=== PATIENT | female | born 1985 | race Caucasian/White ===

== ENCOUNTER 2019-12-21 12:40 | Emergency (ER) | payer MEDICAID, SELFPAY ==
[2019-12-21 12:47] VITALS: BP 114/68; PULSE 87; RESP 16; TEMP 36.8; O2SAT 98; BMI 36.7
[2019-12-21 13:42] LABS: Basophils Percent Auto 0.3 % (0-2); Eosinophils Absolute Auto 0.3 X10*3/uL (0.0-0.4); Eosinophils Percent Auto 2.6 % (0-4); Hematocrit 39.9 % (37-47); Hemoglobin 12.6 g/dl (12.0-16.0); Imm Gran Abs Auto 0.02 X10*3/uL (0.00-0.03); Imm Gran Pct Auto 0.2 % (0.0-0.4); Lymphocytes Percent Auto 31.6 % (20-40); Mean Corpuscular HGB Conc 31.6 g/dl (31.0-35.0); Mean Corpuscular Hemoglobin 24.9 pg (27.0-33.0); Mean Corpuscular Volume 78.9 fL (80-98); Monocytes Absolute Auto 0.6 X10*3/uL (0.1-1.2); Monocytes Percent Auto 5.9 % (2-11); Neutrophils Absolute Auto 5.6 X10*3/uL (2.0-8.3); Neutrophils Percent Auto 59.4 % (45-73); Platelet Count 327 X10*3/uL (160-400); Red Blood Count 5.06 X10*6/uL (4.20-5.50); Red Cell Distribution Width 15.9 % (11.0-16.0); White Blood Count 9.5 X10*3/uL (4.8-10.8)
[2019-12-21 13:43] LABS: Glucose Urine UA NEG (NEG); Leukocyte Esterase Urine NEG (NEG); MANUAL DIFF FLAG NO; Nitrite Urine NEG (NEG); Specific Gravity - Urine >= 1.030 (1.005-1.025); Urine Blood 1+ (NEG); Urine Ketones NEG (NEG); Urine Protein NEG (NEG-TRACE)
[2019-12-21 13:46] LABS: Appearance Urine HAZY; Color Urine YELLOW
[2019-12-21 13:47] LABS: UPreg QC Valid YES; Urine Pregnancy NEGATIVE (NEGATIVE)
[2019-12-21] MEDS: 0.9 % Sodium Chloride 500 ML 1000 ML IV (13:48)
[2019-12-21 13:53] LABS: Bacteria Urine TRACE /LPF; Mucus Urine 4+ /LPF; Squamous Epithelial Cell Urine 3+ /LPF; WBC Urine 0-2 /HPF (0-4)
[2019-12-21] MEDS: ondansetron HCL 4 MG/2 ML VIAL IVPUSH (13:53)
--- NOTE | 2019-12-21 14:00 | PC.NURSE ---
PT BECAME DIAPHORETIC, PALE, NAUSEOUS DURING IV INSERTION. FLUIDS HUNG, LABS DRAWN.
[2019-12-21 14:10] LABS: Alanine Aminotransferase 23 U/L (0-31); Albumin Level 4.3 g/dL (3.5-5.0); Alkaline Phosphatase 65 U/L (39-117); Anion Gap 13 (12-20); Aspartate Amino Transferase 22 U/L (5-31); Bilirubin Total 0.5 mg/dL (0.0-1.0); Blood Urea Nitrogen 8 mg/dL (9-16); Calcium 8.8 mg/dL (8.4-10.2); Carbon Dioxide 22 mmol/L (22-29); Chloride 107 mmol/L (96-108); Creatinine Clr Calc Pharmacy 111.5; Estimated Glomerular Filt Rate > 60; Glucose Random 83 mg/dL (60-115); Potassium 3.9 mmol/l (3.3-5.1); Sodium 138 mmol/L (135-145); Total Protein 7.7 g/dL (6.5-8.0)
[2019-12-21 14:14] VITALS: BP 99/64; PULSE 62; RESP 14; O2SAT 99
--- NOTE | 2019-12-21 14:29 | CT_ITS ---
EXAMINATION: CT ABDOMEN AND PELVIS WITH CONTRAST CLINICAL INFORMATION: Right lower quadrant and right flank pain. COMPARISON: None TECHNIQUE: Multidetector volumetric images were obtained from the superior aspect of the liver through the pubic symphysis following administration 85 mL of Omnipaque 350 intravenous contrast. Sagittal and coronal reformatted images were obtained on the technologist's workstation. Oral contrast: No This CT examination was performed using dose optimization techniques as appropriate, variously including the following: *Automated exposure control *Adjustment of mA and/or kV according to patient size (this includes techniques or standardized protocols for targeted exams where dose is matched to indication/reason for exam; i.e. extremities or head) *Use of iterative reconstruction technique DLP: 792 mGy-cm FINDINGS: LUNG BASES: The visualized lung bases are unremarkable. LIVER, GALLBLADDER, AND BILIARY TREE: The liver shows mildly decreased attenuation consistent with hepatic steatosis. There is no focal parenchymal lesion. No intrahepatic ductal dilatation. Liver size and contour are normal. The gallbladder has been surgically removed. PANCREAS: Unremarkable. SPLEEN: Unremarkable. ADRENAL GLANDS: Unremarkable. KIDNEYS AND URETERS: A nonobstructing calculus in the lower pole the left kidney measures 0.3 cm. There are several other tiny punctate nonobstructing calculi in both kidneys. A small hypoattenuating lesion medially in the lower pole of the left kidney measures 0.3 cm and is too small to characterize. Kidneys are otherwise unremarkable. No hydronephrosis. No ureteric calculi are demonstrated. BLADDER: Unremarkable. GASTROINTESTINAL TRACT: The stomach and duodenum are normal. The small bowel and mesentery are unremarkable. The colon is decompressed and unremarkable. The appendix is normal. ABDOMINAL WALL: No significant hernia is appreciated. LYMPH NODES: Normal. VASCULAR: Unremarkable. PELVIC VISCERA: Unremarkable. OSSEOUS STRUCTURES: Unremarkable. Small benign bone islands are seen in the proximal femurs and right ischium. CT/CT abdomen pelvis w con IMPRESSION: 1. Nonobstructing calculi both kidneys. No ureteric or bladder calculi demonstrated. No hydronephrosis. 2. Normal appendix. 3. Mild hepatic steatosis. 4. Status post cholecystectomy.
[2019-12-21] MEDS: iohexoL 350 MG/ML 100 ML INFUS..BTL IV (15:20)
[2019-12-21 16:10] VITALS: BP 103/62; PULSE 77; RESP 16; O2SAT 99
--- NOTE | 2019-12-21 16:17 | ED.ABDPAIN ---
HPI - Abdominal Pain General Chief Complaint: Abdominal Pain Stated Complaint: flank pain Time Seen by Provider: 12/21/19 13:22 Source: patient Mode of arrival: ambulatory History of Present Illness MD elicited complaint: abdominal pain Pertinent past history: none Onset (ago): day(s) (7 days ) Pain Consistency: intermittent Location: diffuse ( right flank to right lower quadrant) Severity: moderate Radiation: RLQ and back Migration to: R flank Exacerbating factors: nothing Relieving factors: nothing Associated symptoms: denies other symptoms Related Data Previous Rx's Medication Instructions Recorded ibuprofen 800 mg PO Q8H PRN #30 tab 12/21/19 oxycodone 5 mg PO BID PRN #7 tab 12/21/19 Allergies Allergy/AdvReac Type Severity Reaction Status Date / Time aspirin [ASA] Allergy Swelling Verified 12/21/19 12:59 Review of Systems Review of Systems Constitutional: No Weight loss, No Fever, No Chills, No Night Sweats, No Fatigue, No Malaise ENT/Mouth: No Hearing loss, No Ear Pain, No Nasal Congestion, No Sinus Pain, No Hoarseness, No sore throat, No Rhinorrhea, No Swallowing Difficulty Eyes: No Eye Pain, No Swelling, No Redness, No Foreign Body, No Discharge, No Vision Changes Cardiovascular: No Chest Pain, No SOB, No Dyspnea on Exertion, No Orthopnea, No Edema, No Palpitations Respiratory: No Cough, No Sputum, No Wheezing, No Smoke Exposure, No Dyspnea Gastrointestinal: + Nausea, No Vomiting, No Diarrhea, No Constipation, + abdominal Pain, No Hematochezia, No Melena Genitourinary: no irregular bleeding, No Dysuria, No Urinary Frequency, No Hematuria, No Urinary Incontinence, No Urgency, No Flank Pain, No Urinary Flow Changes, No Hesitancy Musculoskeletal: No joint pain, No Myalgias, No Joint Swelling Skin: No Skin Lesions, No rash Neuro: No Weakness, No Numbness Psych: No Anxiety/Panic, No Depression Heme/Lymph: No Bruising, No Bleeding,No Lymphadenopathy Endocrine: No Polyuria, No Polydipsia, No Temperature Intolerance Yes all other systems are reviewed and are negative Physical Exam Vital Signs: Vital Signs: Last Vital Signs Temp 98.2 F 12/21/19 12:47 Pulse 77 12/21/19 16:10 Resp 16 12/21/19 16:10 BP 103/62 12/21/19 16:10 Pulse Ox 99 12/21/19 16:10 Body Mass Index 36.7 Const: General: cooperative and healthy appearing; No acute distress or intoxicated appearing Nutritional Appearance: average body habitus Orientation/consciousness: patient oriented x3 HENMT: Head: Yes normal to inspection Ears: hearing grossly normal bilaterally Eyes: General: appearance normal, both eyes and all related structures Visual Bird: normal visual bird by confrontation Neck: Neck: Yes normal visual inspection Thyroid: Thyroid normal Chest: Chest palpation & inspection: normal inspection of the chest Resp: Effort & Inspection: normal respiratory effort Cardio: Jugular venous distension: no JVD GI: Inspection: Yes normal to inspection Percussion: Yes normal to percussion Auscultation: normal bowel sounds : General: Yes CVA tenderness (R side ) Back/Spine/Pelvis: Back: CVA tenderness (R side ) Skin: General skin exam: no rashes or lesions noted Neuro: General: patient oriented x3 Extrem: General: Yes normal to inspection Course Course Course Narrative: labs overall stable. No leukocytosis. Urine noninfected. negative. CT of the abdomen pelvis with IV contrast shows 1. Nonobstructing calculi both kidneys. No ureteric or bladder calculi demonstrated. No hydronephrosis. 2. Normal appendix. 3. Mild hepatic steatosis. 4. Status post cholecystectomy. findings with patient. Comfortable plan. Will be discharged with short course the medication, follow-up clear progression to follow-up instructions MDM - Abdominal Pain Lab Data Result diagrams: 12/21/19 13:32 12/21/19 13:30 Labs: Lab Results 12/21/19 12/21/19 12/21/19 Range/Units 13:30 13:32 13:32 WBC (4.8-10.8) X10*3/uL RBC (4.20-5.50) X10*6/uL Hgb (12.0-16.0) g/dl Hct (37-47) % MCV (80-98) fL MCH (27.0-33.0) pg MCHC (31.0-35.0) g/dl RDW (11.0-16.0) % Plt Count (160-400) X10*3/uL MPV (9.4-12.3) fL Immature Gran % (Auto) (0.0-0.4) % Neut % (Auto) (45-73) % Lymph % (Auto) (20-40) % [place] % (Auto) (2-11) % Eos % (Auto) (0-4) % Baso % (Auto) (0-2) % Lymph # (Auto) (1.2-4.9) X10*3/uL [place] # (Auto) (0.1-1.2) X10*3/uL Eos # (Auto) (0.0-0.4) X10*3/uL Baso # (Auto) (0.0-0.2) X10*3/uL Abs Immat Gran (auto) (0.00-0.03) X10*3/uL Absolute Neuts (auto) (2.0-8.3) X10*3/uL Absolute Nucleated RBC (0.0-0.012) X10*3/uL Nucleated RBC % (auto) (0.0-0.2) /100WBC Sodium 138 (135-145) mmol/L Potassium 3.9 (3.3-5.1) mmol/l Chloride 107 (96-108) mmol/L Carbon Dioxide 22 (22-29) mmol/L Anion Gap 13 (12-20) BUN 8 L (9-16) mg/dL Creatinine 0.76 (0.5-1.4) mg/dL Estim Creat Clear Calc 111.5 Estimated GFR > 60 Random Glucose 83 (60-115) mg/dL Calcium 8.8 (8.4-10.2) mg/dL Total Bilirubin 0.5 (0.0-1.0) mg/dL AST 22 (5-31) U/L ALT 23 (0-31) U/L Alkaline Phosphatase 65 (39-117) U/L Total Protein 7.7 (6.5-8.0) g/dL Albumin 4.3 (3.5-5.0) g/dL Urine Color YELLOW Urine Appearance HAZY Urine pH 6.0 (5.0-8.0) Ur Specific [place] >= 1.030 H (1.005-1.025) Urine Protein NEG (NEG-TRACE) MG/DL Urine Glucose (UA) NEG (NEG) MG/DL Urine Ketones NEG (NEG) MG/DL Urine Blood 1+ H (NEG) Urine Nitrite NEG (NEG) Ur Leukocyte Esterase NEG (NEG) Urine RBC 1-4 (0) /HPF Urine WBC 0-2 (0-4) /HPF Ur Squamous Epith Cells 3+ /LPF Urine Bacteria TRACE /LPF Urine Mucus 4+ /LPF Urine Test NEGATIVE (NEGATIVE) 12/21/19 Range/Units 13:32 WBC 9.5 (4.8-10.8) X10*3/uL RBC 5.06 (4.20-5.50) X10*6/uL Hgb 12.6 (12.0-16.0) g/dl Hct 39.9 (37-47) % MCV 78.9 L (80-98) fL MCH 24.9 L (27.0-33.0) pg MCHC 31.6 (31.0-35.0) g/dl RDW 15.9 (11.0-16.0) % Plt Count 327 (160-400) X10*3/uL MPV 10.0 (9.4-12.3) fL Immature Gran % (Auto) 0.2 (0.0-0.4) % Neut % (Auto) 59.4 (45-73) % Lymph % (Auto) 31.6 (20-40) % [place] % (Auto) 5.9 (2-11) % Eos % (Auto) 2.6 (0-4) % Baso % (Auto) 0.3 (0-2) % Lymph # (Auto) 3.0 (1.2-4.9) X10*3/uL [place] # (Auto) 0.6 (0.1-1.2) X10*3/uL Eos # (Auto) 0.3 (0.0-0.4) X10*3/uL Baso # (Auto) 0.0 (0.0-0.2) X10*3/uL Abs Immat Gran (auto) 0.02 (0.00-0.03) X10*3/uL Absolute Neuts (auto) 5.6 (2.0-8.3) X10*3/uL Absolute Nucleated RBC 0.000 (0.0-0.012) X10*3/uL Nucleated RBC % (auto) 0.0 (0.0-0.2) /100WBC Sodium (135-145) mmol/L Potassium (3.3-5.1) mmol/l Chloride (96-108) mmol/L Carbon Dioxide (22-29) mmol/L Anion Gap (12-20) BUN (9-16) mg/dL Creatinine (0.5-1.4) mg/dL Estim Creat Clear Calc Estimated GFR Random Glucose (60-115) mg/dL Calcium (8.4-10.2) mg/dL Total Bilirubin (0.0-1.0) mg/dL AST (5-31) U/L ALT (0-31) U/L Alkaline Phosphatase (39-117) U/L Total Protein (6.5-8.0) g/dL Albumin (3.5-5.0) g/dL Urine Color Urine Appearance Urine pH (5.0-8.0) Ur Specific [place] (1.005-1.025) Urine Protein (NEG-TRACE) MG/DL Urine Glucose (UA) (NEG) MG/DL Urine Ketones (NEG) MG/DL Urine Blood (NEG) Urine Nitrite (NEG) Ur Leukocyte Esterase (NEG) Urine RBC (0) /HPF Urine WBC (0-4) /HPF Ur Squamous Epith Cells /LPF Urine Bacteria /LPF Urine Mucus /LPF Urine Test (NEGATIVE) Imaging Data CT scan - abdomen: Radiologist's impression: [place] [id number] CT Scan Report Signed Patient: Annette Harding#: [id number] : 1985Acct:[id number] Age/Sex: 34 / FADM Date: 12/21/19 Loc: .ED Attending Dr: Ordering Physician: Virgilio Rush NP Date of Service: 12/21/19 Procedure(s): CT abdomen pelvis w con Accession Number(s): [id number] cc: Virgilio Rush NP~ EXAMINATION: CT ABDOMEN AND PELVIS WITH CONTRAST CLINICAL INFORMATION: Right lower quadrant and right flank pain. COMPARISON: None TECHNIQUE: Multidetector volumetric images were obtained from the superior aspect of the liver through the pubic symphysis following administration 85 mL of Omnipaque 350 intravenous contrast. Sagittal and coronal reformatted images were obtained on the technologist's workstation. Oral contrast: No This CT examination was performed using dose optimization techniques as appropriate, variously including the following: *Automated exposure control *Adjustment of mA and/or kV according to patient size (this includes techniques or standardized protocols for targeted exams where dose is matched to indication/reason for exam; i.e. extremities or head) *Use of iterative reconstruction technique DLP: 792 mGy-cm FINDINGS: LUNG BASES: The visualized lung bases are unremarkable. LIVER, GALLBLADDER, AND BILIARY TREE: The liver shows mildly decreased attenuation consistent with hepatic steatosis. There is no focal parenchymal lesion. No intrahepatic ductal dilatation. Liver size and contour are normal. The gallbladder has been surgically removed. PANCREAS: Unremarkable. SPLEEN: Unremarkable. ADRENAL GLANDS: Unremarkable. KIDNEYS AND URETERS: A nonobstructing calculus in the lower pole the left kidney measures 0.3 cm. There are several other tiny punctate nonobstructing calculi in both kidneys. A small hypoattenuating lesion medially in the lower pole of the left kidney measures 0.3 cm and is too small to characterize. Kidneys are otherwise unremarkable. No hydronephrosis. No ureteric calculi are demonstrated. BLADDER: Unremarkable. GASTROINTESTINAL TRACT: The stomach and duodenum are normal. The small bowel and mesentery are unremarkable. The colon is decompressed and unremarkable. The appendix is normal. ABDOMINAL WALL: No significant hernia is appreciated. LYMPH NODES: Normal. VASCULAR: Unremarkable. PELVIC VISCERA: Unremarkable. OSSEOUS STRUCTURES: Unremarkable. Small benign bone islands are seen in the proximal femurs and right ischium. CT/CT abdomen pelvis w con IMPRESSION: 1. Nonobstructing calculi both kidneys. No ureteric or bladder calculi demonstrated. No hydronephrosis. 2. Normal appendix. 3. Mild hepatic steatosis. 4. Status post cholecystectomy. Dictated By:Tatiana CANTU MD Signed By:<Electronically signed by Tatiana CANTU MD in OV>12/21/19 1542 DD/ 1429 TD/TT: Filtering Machine Tender: ROSANNE Discharge Plan Discharge Clinical Impression: Calculus of kidney Patient Disposition: Home, Self-Care Instructions: Kidney Stones (ED), Flank Pain (ED) Prescriptions: New ibuprofen 800 mg tablet 800 mg PO Q8H PRN (Reason: pain) Qty: 30 RF: 0 oxycodone 5 mg tablet 5 mg PO BID PRN (Reason: pain) Qty: 7 RF: 0 Referrals: [facility] [Primary Care Provider] - 1 week Brian Sullivan III, MD [Physician] - 1 week [facility] Past Medical History Attestation statement: The following information was validated with the patient. Medical History (Updated 12/21/19 @ 16:28 by Virgilio Rush NP) delivery delivered Kidney stone Surgical History (Updated 12/21/19 @ 12:56 by Luli Trujillo) Hx of cholecystectomy Social History Social History Alcohol intake: never Smoking Status: Never smoker Use of substances other than those prescribed or required for medical reasons: No Advance Directives: No Advance Directives Information Provided: Yes
--- NOTE | 2019-12-21 16:34 | PC.NURSE ---
PT REPORTS IMPROVEMENT WITH PAIN AT REST, INCREASED PAIN WITH MOVEMENT. DENIES NAUSEA AT THIS TIME.
[2019-12-21 16:44] VITALS: RESP 18
[2019-12-21] MEDS: Morphine Sulfate 4 MG/ML CARTRIDGE IVPUSH (16:44)
== END 2019-12-21 16:50 | disposition home or self-care (01) ==
PROVIDERS: Nurse Practitioner Primary Care; Emergency Provider Emergency Medicine
DX: N20.0 Calculus of kidney (principal); Z79.899 Other long term (current) drug therapy
CPT/HCPCS: 36415; 74177; 80053; 81001; 81025; 85025; 96374; 96375; 99284; J2270; J2405; Q9967

== ENCOUNTER 2020-03-12 19:07 | Emergency (ER) | payer MEDICAID, SELFPAY ==
[2020-03-12 20:38] VITALS: BP 121/61; PULSE 87; RESP 18; TEMP 36.8; O2SAT 99
--- NOTE | 2020-03-12 22:13 | ED.FEMALEGU ---
HPI - Female Genitourinary General Chief complaint: General Medical Stated complaint: hemmroid pain Time Seen by Provider: 03/12/20 22:06 Source: patient Mode of arrival: ambulatory Limitations: no limitations History of Present Illness HPI Narrative: Patient complaining of hemorrhoids for last 1 week now are prolapsed and more painful also patient suffers from constipation no rectal bleeding patient been using preparation H ointment without any relief also take stool softener Related Data Previous Rx's Medication Instructions Recorded ibuprofen 800 mg PO Q8H PRN #30 tab 12/21/19 oxycodone 5 mg PO BID PRN #7 tab 12/21/19 hydrocortisone acetate [Anusol-HC] 25 mg [place] BID #12 ea 03/12/20 Allergies Allergy/AdvReac Type Severity Reaction Status Date / Time aspirin [ASA] Allergy Swelling Verified 12/21/19 12:59 Review of Systems Review of Systems: Yes all other systems are reviewed and are negative PMFSH Past Medical History Medical History delivery delivered Kidney stone Surgical History Hx of cholecystectomy Social History Social History Alcohol intake: never Smoking Status: Never smoker Physical Exam Vital Signs: Vital Signs: Last Vital Signs Temp 98.5 F 03/12/20 22:28 Pulse 79 03/12/20 22:28 Resp 18 03/12/20 22:28 BP 114/66 03/12/20 22:28 Pulse Ox 99 03/12/20 22:28 Body Mass Index 30.7 Const: General: comfortable and no acute distress HENMT: Head: Yes normocephalic and Yes atraumatic Eyes: General: appearance normal, both eyes and all related structures Chest: Chest palpation & inspection: normal inspection of the chest Resp: Effort & Inspection: normal respiratory effort Cardio: Rate: regular rate Rhythm: regular rhythm GI: Inspection: Yes normal to inspection Palpation (GI): Soft to palpation and nontender Rectal Exam - Female: External hemorrhoid(s) present (Not bleeding, prolapsed) Neuro: General: patient oriented x3 Course Course Course Narrative: Using Uro jet prolapsed hemorrhoid put back inside without any significant discomfort patient feeling much better now will discharge patient home Discharge Plan Discharge Clinical Impression: Hemorrhoid prolapse Patient Disposition: Home, Self-Care Instructions: Hemorrhoids (ED) Additional Instructions: Avoid constipation take stool softener Anusol suppository as advised Follow-up with surgeon Prescriptions: New hydrocortisone acetate [Anusol-HC] 25 mg suppository 25 mg [place] BID Qty: 12 RF: 0 No Action ibuprofen 800 mg tablet 800 mg PO Q8H PRN (Reason: pain) Qty: 30 RF: 0 oxycodone 5 mg tablet 5 mg PO BID PRN (Reason: pain) Qty: 7 RF: 0 Referrals: Fabiano Rolle MD [Physician] - 1 week
[2020-03-12] MEDS: Lidocaine HCl 2 % Urojet 10 ML JEL.PF.APP TOPICAL (22:27)
[2020-03-12 22:28] VITALS: BP 114/66; PULSE 79; RESP 18; TEMP 36.9; O2SAT 99; BMI 30.7
== END 2020-03-12 22:46 | disposition home or self-care (01) ==
LOC: HO.ED 22:40
PROVIDERS: Emergency Provider Internal Medicine
DX: K64.8 Other hemorrhoids (principal); Z79.899 Other long term (current) drug therapy
CPT/HCPCS: 99283

== ENCOUNTER 2020-04-05 12:57 | Outpatient (REF) | payer MEDICAID, SELFPAY ==
--- NOTE | ~2020-04-05 | XR_ITS ---
EXAMINATION: XR LUMBOSACRAL SPINE CLINICAL INFORMATION: Lumbago with right-sided sciatica COMPARISON: 12/21/2019 TECHNIQUE: AP and lateral views of the lumbar spine with an additional coned down lateral spot view of the lumbosacral junction. FINDINGS: 5 non-rib bearing lumbar type vertebral bodies are seen. The vertebral bodies and posterior elements are normal. The disc spaces are preserved and the vertebral alignment is normal. The paraspinal soft tissues are normal. Cholecystectomy clips. XR/XR lumbar spine 2-3V IMPRESSION: No acute osseous abnormality. No significant degenerative changes.
== END 2020-04-05 12:58 | disposition home or self-care (01) ==
LOC: HO.XRAY 12:57
PROVIDERS: PCP Nurse Practitioner Primary Care; Visit Provider Emergency Medicine
DX: M54.41 Lumbago with sciatica, right side (principal)
CPT/HCPCS: 72100

== ENCOUNTER 2020-04-09 17:36 | Emergency (ER) | payer MEDICAID, SELFPAY ==
[2020-04-09 17:42] VITALS: BP 134/77; PULSE 86; RESP 18; TEMP 37.4; O2SAT 99; BMI 36.2
--- NOTE | 2020-04-09 21:38 | ED.ALLEREA ---
HPI - Allergic Reaction General Chief complaint: Allergic Reaction Stated complaint: allergic reactions Time Seen by Provider: 04/09/20 21:30 Source: patient Mode of arrival: ambulatory Limitations: no limitations History of Present Illness HPI narrative: Patient comes emergency room complaining of multiple episodes of red itchy skin and sensation of throat closing. Patient states that a few days ago she was given a prescription of methylprednisolone and baclofen for back pain. Patient states that when she takes baclofen nothing happens, it only happens when she takes the steroids. Prior to arrival, patient had a burning sensation in the face upper and lower extremities, states she lost her voice and could not speak, did not have any difficulty breathing, then symptoms self resolved. At this time, patient's symptoms are nearly gone MD complaint: allergic reaction Related Data Previous Rx's Medication Instructions Recorded ibuprofen 800 mg PO Q8H PRN #30 tab 12/21/19 oxycodone 5 mg PO BID PRN #7 tab 12/21/19 hydrocortisone acetate [Anusol-HC] 25 mg [place] BID #12 ea 03/12/20 Allergies Allergy/AdvReac Type Severity Reaction Status Date / Time aspirin [ASA] Allergy Swelling Verified 12/21/19 12:59 Review of Systems Review of Systems: Constitutional : No Weight loss, No Fever, No Chills, No Night Sweats, No Fatigue, No Malaise ENT/Mouth : No Hearing loss, No Ear Pain, No Nasal Congestion, No Sinus Pain, 1 episode of Hoarseness that self-resolved, No sore throat, No Rhinorrhea, No Swallowing Difficulty Eyes: No Eye Pain, No Swelling, No Redness, No Foreign Body, No Discharge, No Vision Changes Cardiovascular : No Chest Pain, No SOB, No Dyspnea on Exertion, No Orthopnea, No Edema, No Palpitations Respiratory : No Cough, No Sputum, No Wheezing, No Smoke Exposure, No Dyspnea Gastrointestinal : No Nausea, No Vomiting, No Diarrhea, No Constipation, No abdominal Pain, No Hematochezia, No Melena Genitourinary : no irregular bleeding, No Dysuria, No Urinary Frequency, No Hematuria, No Urinary Incontinence, No Urgency, No Flank Pain, No Urinary Flow Changes, No Hesitancy Musculoskeletal : No joint pain, No Myalgias, No Joint Swelling Skin : Complaining of red burning sensation in skin, self-resolved Neuro : No Weakness, No Numbness, No Paresthesias, No Loss of Consciousness, No Dizziness, No Headache Psych : No Anxiety/Panic, No Depression, No SI/HI/AH/VH, No Social Issues, Heme/Lymph: No Bruising, No Bleeding,No Lymphadenopathy Endocrine : No Polyuria, No Polydipsia, No Temperature Intolerance PMF Past Medical History Medical History delivery delivered Kidney stone Surgical History Hx of cholecystectomy Social History Social History Alcohol intake: never Smoking Status: Never smoker Advance Directives: No Advance Directives Information Provided: Yes Physical Exam Vital Signs: Vital Signs: Last Vital Signs Temp 99.3 F 04/09/20 17:42 Pulse 86 04/09/20 17:42 Resp 18 04/09/20 17:42 BP 134/77 04/09/20 17:42 Pulse Ox 99 04/09/20 17:42 Body Mass Index 36.2 Appearance: Alert. Oriented X3. No acute distress. Eyes: Pupils equal, round and reactive to light. ENT: Pharynx normal. No angioedema Neck: Normal inspection. Neck supple. No lymph nodes noted. No crepitus CVS: Normal heart rate and rhythm. Pulses normal. Normal S1 and S2 Respiratory: No respiratory distress. Breath sounds normal. No Wheezing. No rales Abdomen: Soft and nontender. No rigidity. No distention. good BS x4 Skin: Skin warm and dry. Very mild erythema in upper arms, lower extremities within normal limits, Extremities: No lower extremity edema. No lower extremity edema. No Lacerations. No Rash Neuro: Oriented X 3. No motor deficit. No sensory deficit. Moving all extermities. No slurred speech. Course Course Course Narrative: I discussed with the patient that she may be allergic to the methylprednisolone. Patient was given a dose of Benadryl and Pepcid oral, no steroids. Patient instructed to follow-up with the primary care physician, patient will likely need a skin scratch test to determine if she is allergic to steroids. Patient was instructed to discontinue taking methylprednisolone Discharge Plan Discharge Clinical Impression: Allergic reaction Qualifiers: Encounter type: initial encounter Qualified Code(s): T78.40XA - Allergy, unspecified, initial encounter Patient Disposition: Home, Self-Care Instructions: General Allergic Reaction (ED) Additional Instructions: Please discuss continue taking methylprednisolone. Please follow-up with your primary care physician tomorrow. If you have any worsening or new symptoms, please return to the emergency room or call 911. Prescriptions: No Action ibuprofen 800 mg tablet 800 mg PO Q8H PRN (Reason: pain) Qty: 30 RF: 0 oxycodone 5 mg tablet 5 mg PO BID PRN (Reason: pain) Qty: 7 RF: 0 hydrocortisone acetate [Anusol-HC] 25 mg suppository 25 mg [place] BID Qty: 12 RF: 0
[2020-04-09] MEDS: Famotidine 20 MG TABLET PO (22:04)
[2020-04-09] MEDS: diphenhydrAMINE HCL 25 MG TABLET 50 MG PO (22:04)
== END 2020-04-09 22:15 | disposition home or self-care (01) ==
PROVIDERS: Emergency Provider Emergency Medicine
DX: T78.40XA Allergy, unspecified, initial encounter (principal); L29.9 Pruritus, unspecified; X58.XXXA Exposure to other specified factors, initial encounter
CPT/HCPCS: 99283; 99284; Q0163

== ENCOUNTER 2020-04-14 15:34 | Outpatient (REF) | payer MEDICAID, SELFPAY ==
--- NOTE | ~2020-04-14 | US_ITS ---
EXAMINATION: ULTRASOUND PELVIS COMPLETE CLINICAL INFORMATION: Lower abdominal pain. COMPARISON: None TECHNIQUE: Transabdominal and transvaginal ultrasound of the pelvis is performed. FINDINGS: The uterus is anteverted and anteflexed measuring 12.0 cm in length, 4.2 cm AP and 6.7 cm in transverse dimension. No focal lesion seen. The endometrial thickness measures 1.6 cm. There are small nabothian cysts seen in the cervix. The right ovary measures 3.3 x 1.8 x 2.2 cm and volume 6.8 mL. There is a small anechoic corpus luteal cyst measuring 1.1 x 0.8 x 0.9 cm. The left ovary measures 2.7 x 2.3 x 1.6 cm and volume 5.2 mL. It appears unremarkable. There is no free fluid in the cul-de-sac. US/US transvaginal IMPRESSION: Unremarkable uterus with small nabothian cysts in the cervix. Small corpus luteal cyst suspected right ovary. Thickened endometrial lining likely related to patient's menstrual cycle.
--- NOTE | ~2020-04-14 | US_ITS ---
EXAMINATION: ULTRASOUND PELVIS COMPLETE CLINICAL INFORMATION: Lower abdominal pain. COMPARISON: None TECHNIQUE: Transabdominal and transvaginal ultrasound of the pelvis is performed. FINDINGS: The uterus is anteverted and anteflexed measuring 12.0 cm in length, 4.2 cm AP and 6.7 cm in transverse dimension. No focal lesion seen. The endometrial thickness measures 1.6 cm. There are small nabothian cysts seen in the cervix. The right ovary measures 3.3 x 1.8 x 2.2 cm and volume 6.8 mL. There is a small anechoic corpus luteal cyst measuring 1.1 x 0.8 x 0.9 cm. The left ovary measures 2.7 x 2.3 x 1.6 cm and volume 5.2 mL. It appears unremarkable. There is no free fluid in the cul-de-sac. US/US pelvic complete IMPRESSION: Unremarkable uterus with small nabothian cysts in the cervix. Small corpus luteal cyst suspected right ovary. Thickened endometrial lining likely related to patient's menstrual cycle.
== END 2020-04-14 15:35 | disposition home or self-care (01) ==
LOC: HO.US 15:34
PROVIDERS: Visit Provider Nurse Practitioner Primary Care
DX: R10.30 Lower abdominal pain, unspecified (principal)
CPT/HCPCS: 76830; 76856

== ENCOUNTER 2020-05-04 17:31 | Emergency (ER) | payer OTHER, SELFPAY ==
--- NOTE | ~2020-05-04 | CT_ITS ---
EXAMINATION: CT ABDOMEN AND PELVIS WITH CONTRAST CLINICAL INFORMATION: Right lower quadrant pain. Appendicitis COMPARISON: CT abdomen pelvis 12/21/2019 TECHNIQUE: Multidetector volumetric images were obtained from the superior aspect of the liver through the pubic symphysis following administration 85 mL of Omnipaque 350 intravenous contrast. Sagittal and coronal reformatted images were obtained on the technologist's workstation. Oral contrast: No This CT examination was performed using dose optimization techniques as appropriate, variously including the following: *Automated exposure control *Adjustment of mA and/or kV according to patient size (this includes techniques or standardized protocols for targeted exams where dose is matched to indication/reason for exam; i.e. extremities or head) *Use of iterative reconstruction technique DLP: 785 mGy-cm FINDINGS: LUNG BASES: The visualized lung bases are unremarkable. LIVER, GALLBLADDER, AND BILIARY TREE: The liver is normal in size, shape, and attenuation. No focal hepatic lesion or biliary ductal dilatation is present. Status post cholecystectomy PANCREAS: Unremarkable. SPLEEN: Unremarkable. ADRENAL GLANDS: Unremarkable. KIDNEYS AND URETERS: The kidneys are normal in size, shape, and attenuation. Tiny punctate nonobstructing calculus is seen at the lower pole right kidney. 2 intrarenal nonobstructing calculi present on the left, the largest measuring 3 mm at the lower pole. No hydronephrosis, hydroureter, or calculi seen. A tiny 3 mm cyst is noted at the lower pole of the left kidney. No perinephric stranding. BLADDER: Bladder is empty and demonstrates significant wall thickening GASTROINTESTINAL TRACT: The small and large bowel are unremarkable. The appendix is unremarkable. ABDOMINAL WALL: No significant hernia is appreciated. LYMPH NODES: Normal. VASCULAR: Unremarkable. PELVIC VISCERA: An anteverted uterus is present. In the right adnexa, the ovary is seen and contains a partially collapsed cyst. Perhaps this is the reason for the patient's right lower quadrant pain. No free intraperitoneal fluid is seen. OSSEOUS STRUCTURES: Unremarkable. CT/CT abdomen pelvis w con IMPRESSION: A definite cause for the patient's acute right lower quadrant pain is not found. A partially collapsed right adnexal cyst could possibly be playing a role. Bilateral nonobstructing renal calculi are present. Status post cholecystectomy
--- NOTE | ~2020-05-04 | US_ITS ---
EXAMINATION: US PELVIS OVARIAN DOPPLER US PELVIS COMPLETE US PELVIS TRANSVAGINAL CLINICAL INFORMATION: Right pelvic pain with question of ovarian torsion. COMPARISON: CT scan performed earlier today and pelvic ultrasound 04/14/2020. TECHNIQUE: Both transabdominal and endovaginal scanning was performed. Doppler exam was also performed. FINDINGS: An anteverted enlarged uterus is present measuring 11.6 x 5.5 x 6.7 cm for a volume of 224 mL. The endometrium appears thickened at 2 cm. Some cystic and solid areas are present in the endometrial canal and findings are suspicious for the presence of polyps. Hysterosonography may be of value for further investigation. The right ovary measures 4.3 x 3.5 x 2.7 cm for a volume of 21 mL and includes an involuting corpus luteal cyst. The left ovary measures 3.0 x 3.2 x 1.4 cm for a volume of 7 mL. Doppler exam of both ovaries demonstrates normal arterial and venous flow with no evidence to support ovarian torsion. US/US pelvic complete IMPRESSION: 1. No evidence of ovarian torsion. 2. Probable involuting right corpus luteum cyst. 3. An enlarged anteverted uterus with thickened endometrium with findings suggestive of polyps. Hysterosonography or hysteroscopy may be of value for further investigation.
--- NOTE | ~2020-05-04 | US_ITS ---
EXAMINATION: US PELVIS OVARIAN DOPPLER US PELVIS COMPLETE US PELVIS TRANSVAGINAL CLINICAL INFORMATION: Right pelvic pain with question of ovarian torsion. COMPARISON: CT scan performed earlier today and pelvic ultrasound 04/14/2020. TECHNIQUE: Both transabdominal and endovaginal scanning was performed. Doppler exam was also performed. FINDINGS: An anteverted enlarged uterus is present measuring 11.6 x 5.5 x 6.7 cm for a volume of 224 mL. The endometrium appears thickened at 2 cm. Some cystic and solid areas are present in the endometrial canal and findings are suspicious for the presence of polyps. Hysterosonography may be of value for further investigation. The right ovary measures 4.3 x 3.5 x 2.7 cm for a volume of 21 mL and includes an involuting corpus luteal cyst. The left ovary measures 3.0 x 3.2 x 1.4 cm for a volume of 7 mL. Doppler exam of both ovaries demonstrates normal arterial and venous flow with no evidence to support ovarian torsion. US/US pelvic ovarian doppler IMPRESSION: 1. No evidence of ovarian torsion. 2. Probable involuting right corpus luteum cyst. 3. An enlarged anteverted uterus with thickened endometrium with findings suggestive of polyps. Hysterosonography or hysteroscopy may be of value for further investigation.
--- NOTE | ~2020-05-04 | US_ITS ---
EXAMINATION: US PELVIS OVARIAN DOPPLER US PELVIS COMPLETE US PELVIS TRANSVAGINAL CLINICAL INFORMATION: Right pelvic pain with question of ovarian torsion. COMPARISON: CT scan performed earlier today and pelvic ultrasound 04/14/2020. TECHNIQUE: Both transabdominal and endovaginal scanning was performed. Doppler exam was also performed. FINDINGS: An anteverted enlarged uterus is present measuring 11.6 x 5.5 x 6.7 cm for a volume of 224 mL. The endometrium appears thickened at 2 cm. Some cystic and solid areas are present in the endometrial canal and findings are suspicious for the presence of polyps. Hysterosonography may be of value for further investigation. The right ovary measures 4.3 x 3.5 x 2.7 cm for a volume of 21 mL and includes an involuting corpus luteal cyst. The left ovary measures 3.0 x 3.2 x 1.4 cm for a volume of 7 mL. Doppler exam of both ovaries demonstrates normal arterial and venous flow with no evidence to support ovarian torsion. US/US transvaginal IMPRESSION: 1. No evidence of ovarian torsion. 2. Probable involuting right corpus luteum cyst. 3. An enlarged anteverted uterus with thickened endometrium with findings suggestive of polyps. Hysterosonography or hysteroscopy may be of value for further investigation.
[2020-05-04 17:42] VITALS: BP 120/67; PULSE 91; RESP 20; TEMP 36.3; O2SAT 100; BMI 38.2
[2020-05-04 18:08] LABS: MANUAL DIFF FLAG NO
[2020-05-04 18:10] LABS: Basophils Percent Auto 0.3 % (0-2); Eosinophils Absolute Auto 0.3 X10*3/uL (0.0-0.4); Eosinophils Percent Auto 2.1 % (0-4); Glucose Urine UA NEG (NEG); Hematocrit 39.3 % (37-47); Hemoglobin 12.2 g/dl (12.0-16.0); Imm Gran Abs Auto 0.03 X10*3/uL (0.00-0.03); Imm Gran Pct Auto 0.2 % (0.0-0.4); Leukocyte Esterase Urine TRACE (NEG); Lymphocytes Absolute Auto 3.9 X10*3/uL (1.2-4.9); Lymphocytes Percent Auto 30.8 % (20-40); Mean Corpuscular Hemoglobin 24.3 pg (27.0-33.0); Mean Corpuscular Volume 78.1 fL (80-98); Monocytes Absolute Auto 0.9 X10*3/uL (0.1-1.2); Monocytes Percent Auto 7.2 % (2-11); Neutrophils Absolute Auto 7.5 X10*3/uL (2.0-8.3); Neutrophils Percent Auto 59.4 % (45-73); Nitrite Urine NEG (NEG); PH 5.5 (5.0-8.0); Platelet Count 351 X10*3/uL (160-400); Red Blood Count 5.03 X10*6/uL (4.20-5.50); Red Cell Distribution Width 16.8 % (11.0-16.0); Specific Gravity - Urine <= 1.005 (1.005-1.025); UACC Culture Trigger YES; Urine Blood TRACE (NEG); Urine Ketones NEG (NEG); Urine Protein NEG (NEG-TRACE); White Blood Count 12.6 X10*3/uL (4.8-10.8)
[2020-05-04 18:13] LABS: Appearance Urine CLEAR; Color Urine YELLOW; UPreg QC Valid YES; Urine Pregnancy NEGATIVE (NEGATIVE)
[2020-05-04 18:29] LABS: Bacteria Urine 1+ /LPF; RBC Urine 0-2 /HPF (0); Squamous Epithelial Cell Urine 2+ /LPF
[2020-05-04 18:31] LABS: Anion Gap 12 (12-20); Blood Urea Nitrogen 11 mg/dL (9-16); Calcium 9.6 mg/dL (8.4-10.2); Carbon Dioxide 29 mmol/L (22-29); Chloride 103 mmol/L (96-108); Creatinine Clr Calc Pharmacy 100.6; Estimated Glomerular Filt Rate > 60; Glucose Random 108 mg/dL (60-115); Sodium 140 mmol/L (135-145)
[2020-05-04] MEDS: 0.9 % Sodium Chloride 1,000 ML 999 ML IV ×2 (21:07)
--- NOTE | 2020-05-04 22:26 | ED.ABDPAIN ---
HPI - Abdominal Pain General Chief Complaint: Abdominal Pain Stated Complaint: ABD PAIN Time Seen by Provider: 05/04/20 20:36 Source: patient Mode of arrival: ambulatory Limitations: no limitations History of Present Illness HPI narrative: Patient presents to ED for right lower quadrant pain for couple of days. Patient states no dysuria, hematuria, nausea, vomiting, fever, or chills. Patient thinks she has a bruise on right lower quadrant. Patient denies any recent trauma or subcu injection to abdomen. Patient denies any vaginal discharge or vaginal bleeding. Related Data Home Medications Medication Instructions Recorded Confirmed baclofen 10 mg tablet 10 mg PO BID PRN 05/04/20 methylprednisolone 4 mg tablets in mg PO DIRECTED 05/04/20 a dose pack polyethylene glycol 3350 17 17 g PO DAILY 05/04/20 gram/dose oral powder sennosides 8.6 mg tablet 17.2 mg PO DAILY 05/04/20 tamsulosin 0.4 mg capsule 0.4 mg PO DAILY 05/04/20 Allergies Allergy/AdvReac Type Severity Reaction Status Date / Time aspirin [ASA] Allergy Swelling Verified 04/30/20 13:18 Review of Systems Review of Systems Yes all other systems are reviewed and are negative Constitutional: Reports as per HPI and Reports no additional constitutional complaints Eyes: Reports as per HPI and Reports no additional eye complaints Reports system reviewed and no additional complaints, except as documented and Reports as per HPI Cardiovascular: Reports as per HPI and Reports no additional cardiovascular complaints Respiratory: Reports as per HPI and Reports no additional respiratory complaints Gastrointestinal: Reports as per HPI, Reports no additional gastrointestinal complaints and Reports abdominal pain (Right lower quadrant) Genitourinary: Reports no additional female genitourinary complaints and Reports as per HPI Musculoskeletal: Reports no additional musculoskeletal complaints and Reports as per HPI Reports system reviewed and no additional complaints, except as documented and Reports as per HPI Psychiatric: Reports no additional psychiatric complaints and Reports as per HPI Physical Exam Vital Signs: Vital Signs: Last Vital Signs Temp 97.4 F 05/04/20 17:42 Pulse 83 05/04/20 23:33 Resp 16 05/04/20 23:33 BP 105/57 L 05/04/20 23:33 Pulse Ox 100 05/04/20 17:42 Body Mass Index 38.2 Const: General: cooperative, healthy appearing, comfortable, no acute distress, well developed, alert, awake and Physically active HENMT: Head: Yes normal to inspection and Yes No palpable skull fracture present Eyes: General: appearance normal, both eyes and all related structures Neck: Neck: Yes normal visual inspection, Yes full ROM, Yes no lymphadenopathy, Yes no meningeal signs, Yes trachea midline, Yes supple and No tender Chest: Chest palpation & inspection: normal inspection of the chest and normal palpation of entire chest wall Resp: Effort & Inspection: normal respiratory effort and able to speak in complete sentences Auscultation: clear to auscultation bilaterally Cardio: Jugular venous distension: no JVD Heart sounds: S1 normal heart sound present and S2 normal heart sound present GI: Inspection: Yes normal to inspection and No abdominal wall ecchymosis Palpation (GI): Soft to palpation, not firm, Tenderness to palpation present (GI) in the RLQ, no guarding and not rigid : General: No CVA tenderness and Yes no CVA tenderness Back/Spine/Pelvis: Back: no CVA tenderness, No CVA tenderness and No back tenderness Skin: General skin exam: no rashes or lesions noted and elasticity normal Neuro: General: patient oriented x3, no meningeal signs and CN's II-XI intact bilaterally Cranial nerves: Yes Bilaterally intact EOM present Extrem: General: Yes normal to inspection and Yes full ROM Psych: Appearance: grossly normal, well kempt and not disheveled Course Course Course Narrative: Patient to have labs and CT scan to rule out appendicitis due to tenderness in right lower quadrant. Reevaluation(s) Reevaluation #1: CT scan negative for appendicitis. Negative for elevated white blood cell count. UA negative for infection. And negative for . We will sent for pelvic ultrasound Reevaluation #2: Ultrasound shows right corpeus ovarian cysts. Negative for ovarian torsion. Patient is safe for discharge MDM - Abdominal Pain MDM Narrative Medical decision making narrative: Right ovarian corpus luteal cyst Lab Data Result diagrams: 05/04/20 18:01 05/04/20 18:01 Labs: Lab Results 05/04/20 05/04/20 05/04/20 Range/Units 18:01 18:01 18:01 WBC 12.6 H (4.8-10.8) X10*3/uL RBC 5.03 (4.20-5.50) X10*6/uL Hgb 12.2 (12.0-16.0) g/dl Hct 39.3 (37-47) % MCV 78.1 L (80-98) fL MCH 24.3 L (27.0-33.0) pg MCHC 31.0 (31.0-35.0) g/dl RDW 16.8 H (11.0-16.0) % Plt Count 351 (160-400) X10*3/uL MPV 10.0 (9.4-12.3) fL Immature Gran % (Auto) 0.2 (0.0-0.4) % Neut % (Auto) 59.4 (45-73) % Lymph % (Auto) 30.8 (20-40) % [place] % (Auto) 7.2 (2-11) % Eos % (Auto) 2.1 (0-4) % Baso % (Auto) 0.3 (0-2) % Lymph # (Auto) 3.9 (1.2-4.9) X10*3/uL [place] # (Auto) 0.9 (0.1-1.2) X10*3/uL Eos # (Auto) 0.3 (0.0-0.4) X10*3/uL Baso # (Auto) 0.0 (0.0-0.2) X10*3/uL Abs Immat Gran (auto) 0.03 (0.00-0.03) X10*3/uL Absolute Neuts (auto) 7.5 (2.0-8.3) X10*3/uL Absolute Nucleated RBC 0.000 (0.0-0.012) X10*3/uL Nucleated RBC % (auto) 0.0 (0.0-0.2) /100WBC PT (10.8-13.0) SEC INR (0.9-1.1) APTT (24.1-38.0) SEC Sodium 140 (135-145) mmol/L Potassium 4.0 (3.3-5.1) mmol/L Chloride 103 (96-108) mmol/L Carbon Dioxide 29 (22-29) mmol/L Anion Gap 12 (12-20) BUN 11 (9-16) mg/dL Creatinine 0.84 (0.5-1.4) mg/dL Estim Creat Clear Calc 100.6 Estimated GFR > 60 Random Glucose 108 (60-115) mg/dL Calcium 9.6 D (8.4-10.2) mg/dL Urine Color YELLOW Urine Appearance CLEAR Urine pH 5.5 (5.0-8.0) Ur Specific [place] <= 1.005 (1.005-1.025) Urine Protein NEG (NEG-TRACE) MG/DL Urine Glucose (UA) NEG (NEG) MG/DL Urine Ketones NEG (NEG) MG/DL Urine Blood TRACE (NEG) Urine Nitrite NEG (NEG) Ur Leukocyte Esterase TRACE H (NEG) Urine RBC 0-2 (0) /HPF Urine WBC 1-4 (0-4) /HPF Ur Squamous Epith Cells 2+ /LPF Urine Bacteria 1+ /LPF Urine Test (NEGATIVE) 05/04/20 05/05/20 Range/Units 18:01 00:12 WBC (4.8-10.8) X10*3/uL RBC (4.20-5.50) X10*6/uL Hgb (12.0-16.0) g/dl Hct (37-47) % MCV (80-98) fL MCH (27.0-33.0) pg MCHC (31.0-35.0) g/dl RDW (11.0-16.0) % Plt Count (160-400) X10*3/uL MPV (9.4-12.3) fL Immature Gran % (Auto) (0.0-0.4) % Neut % (Auto) (45-73) % Lymph % (Auto) (20-40) % [place] % (Auto) (2-11) % Eos % (Auto) (0-4) % Baso % (Auto) (0-2) % Lymph # (Auto) (1.2-4.9) X10*3/uL [place] # (Auto) (0.1-1.2) X10*3/uL Eos # (Auto) (0.0-0.4) X10*3/uL Baso # (Auto) (0.0-0.2) X10*3/uL Abs Immat Gran (auto) (0.00-0.03) X10*3/uL Absolute Neuts (auto) (2.0-8.3) X10*3/uL Absolute Nucleated RBC (0.0-0.012) X10*3/uL Nucleated RBC % (auto) (0.0-0.2) /100WBC PT 13.5 H (10.8-13.0) SEC INR 1.1 (0.9-1.1) APTT 30.0 (24.1-38.0) SEC Sodium (135-145) mmol/L Potassium (3.3-5.1) mmol/L Chloride (96-108) mmol/L Carbon Dioxide (22-29) mmol/L Anion Gap (12-20) BUN (9-16) mg/dL Creatinine (0.5-1.4) mg/dL Estim Creat Clear Calc Estimated GFR Random Glucose (60-115) mg/dL Calcium (8.4-10.2) mg/dL Urine Color Urine Appearance Urine pH (5.0-8.0) Ur Specific [place] (1.005-1.025) Urine Protein (NEG-TRACE) MG/DL Urine Glucose (UA) (NEG) MG/DL Urine Ketones (NEG) MG/DL Urine Blood (NEG) Urine Nitrite (NEG) Ur Leukocyte Esterase (NEG) Urine RBC (0) /HPF Urine WBC (0-4) /HPF Ur Squamous Epith Cells /LPF Urine Bacteria /LPF Urine Test NEGATIVE (NEGATIVE) Discharge Plan Discharge Clinical Impression: Ovarian cyst Patient Disposition: Home, Self-Care Instructions: Ovarian Cyst (ED) Additional Instructions: Regrese al servicio de urgencias si empeora el dolor abdominal bajo, n?useas, v?mitos, sangrado vaginal, disuria, hematuria, dolor en el costado, fiebre, escalofr?os, flujo vaginal o cualquier otro s?ntoma preocupante. Cunningham tomograf?a computarizada abdominal result? normal. Cunningham ecograf?a mostr? un quiste del cuerpo l?ashley del ovario derecho. La ecograf?a mostr? sospecha de p?lipos en el ?tero. Recomendar histerosonograf?a o histeroscopia. Cunningham orina result? negativa para UTI. Puede svitlana Tylenol en dosis altas de venta arturo para el dolor. Prescriptions: No Action polyethylene glycol 3350 17 gram/dose powder 17 g PO DAILY RF: 0 tamsulosin 0.4 mg capsule 0.4 mg PO DAILY RF: 0 sennosides 8.6 mg tablet 17.2 mg PO DAILY RF: 0 methylprednisolone 4 mg tablets,dose pack PO DIRECTED RF: 0 baclofen 10 mg tablet 10 mg PO BID PRN (Reason: muscle spasm) RF: 0 Interventions: ED Discharge Assessment Last Done: 05/05/20 00:32 Discharge Date/Time: 05/05/20 00:50 Print Language: [place] [facility] Past Medical History Medical History (Updated 05/05/20 @ 00:16 by ELSY Fung) delivery delivered Kidney stone Nephrolithiasis Surgical History Hx of cholecystectomy Family History Family History (Updated 04/30/20 @ 13:29 by JACKIE Arzola) Mother No problems noted. Father No problems noted. Social History Social History Alcohol intake: never Smoking Status: Never smoker Advance Directives: No Advance Directives Information Provided: Yes
[2020-05-04 23:33] VITALS: BP 105/57; PULSE 83; RESP 16
[2020-05-04] MEDS: Morphine Sulfate 2 MG/ML CARTRIDGE IVPUSH (23:33)
--- NOTE | 2020-05-04 23:34 | PC.NURSE ---
vs obtained. pt c/o right abd pain and medicated as per emar.
[2020-05-05 00:29] LABS: INTERNATIONAL NORM RATIO 1.1 (0.9-1.1); Prothrombin Time 13.5 SEC (10.8-13.0)
== END 2020-05-05 00:50 | disposition home or self-care (01) ==
PROVIDERS: Physician Assistant; Emergency Provider Emergency Medicine; PCP Nurse Practitioner Family
DX: N83.11 Corpus luteum cyst of right ovary (principal); R10.31 Right lower quadrant pain
CPT/HCPCS: 36415; 74177; 76830; 76856; 80048; 81001; 81003; 81025; 85025; 85610; 85730; 87086; 93975; 96361; 96374; 99283; 99284; J2270; Q9967

== ENCOUNTER 2020-05-06 14:11 | Outpatient (REF) | payer OTHER, SELFPAY ==
[2020-05-07 09:22] LABS: CT PCR NOT DETECTED (Not Detect.); NG PCR NOT DETECTED (Not Detect.)
[2020-05-07 10:17] LABS: BV Int Neg Control Negative (Negative); BV Int Pos Control Positive (Positive)
== END 2020-05-06 14:12 | disposition home or self-care (01) ==
LOC: HO.LAB 14:11
PROVIDERS: Visit Provider Advanced Practice Midwife
DX: N84.0 Polyp of corpus uteri (principal); R10.9 Unspecified abdominal pain; Z12.4 Encounter for screening for malignant neoplasm of cervix; Z20.2 Contact with and (suspected) exposure to infections with a predominantly sexual mode of transmission
CPT/HCPCS: 87480; 87491; 87510; 87591; 87660; 88142; 99202; 99395

== ENCOUNTER 2020-05-11 15:17 | Outpatient (REF) | payer OTHER, SELFPAY | END 2020-05-11 15:18 | disposition home or self-care (01) | LOC: HO.LAB 15:17 | PROVIDERS: Visit Provider Obstetrics & Gynecology | DX: R31.29 Other microscopic hematuria (principal); N84.0 Polyp of corpus uteri; N76.0 Acute vaginitis; B96.89 Other specified bacterial agents as the cause of diseases classified elsewhere; N92.0 Excessive and frequent menstruation with regular cycle | CPT/HCPCS: 81003; 87086; 99212 ==

== ENCOUNTER 2020-06-04 12:39 | Outpatient (REF) | payer OTHER, SELFPAY | END 2020-06-04 12:40 | disposition home or self-care (01) | LOC: HO.LAB 12:39 | PROVIDERS: Visit Provider Internal Medicine | DX: Z20.822 Contact with and (suspected) exposure to COVID-19 (principal) | CPT/HCPCS: C9803; U0003; U0005 ==

== ENCOUNTER 2020-06-25 11:42 | Outpatient (REF) | payer OTHER, SELFPAY | END 2020-06-25 11:43 | disposition home or self-care (01) | LOC: HO.LAB 11:42 | PROVIDERS: Visit Provider Internal Medicine | DX: Z20.822 Contact with and (suspected) exposure to COVID-19 (principal) | CPT/HCPCS: C9803; U0003; U0005 ==

== ENCOUNTER → 2020-06-28 13:10 | Outpatient (BNVA) | payer OTHER, SELFPAY | PROVIDERS: Visit Provider Obstetrics & Gynecology ==

== ENCOUNTER → 2020-07-20 11:24 | Outpatient (BNVA) | payer OTHER, SELFPAY | PROVIDERS: PCP Internal Medicine; Visit Provider Urology | DX: Z13.89 Encounter for screening for other disorder (principal) | CPT/HCPCS: 99202 ==

== ENCOUNTER 2020-07-26 10:31 | Outpatient (REF) | payer OTHER, SELFPAY ==
[2020-07-29 17:31] LABS: HPV mRNA E6/E7 rflx Not Detected (Not Detected)
== END 2020-07-26 10:32 | disposition home or self-care (01) ==
LOC: HO.LAB 10:31
PROVIDERS: Visit Provider Obstetrics & Gynecology
DX: Z12.4 Encounter for screening for malignant neoplasm of cervix (principal); Z11.51 Encounter for screening for human papillomavirus (HPV); N84.0 Polyp of corpus uteri
CPT/HCPCS: 87624; 99212

== ENCOUNTER 2020-07-30 07:39 | Day surgery (SDC) | payer OTHER, SELFPAY ==
[2020-05-28 14:00] VITALS: BMI 37.7
[2020-06-25 12:36] VITALS: BMI 37.5
--- NOTE | 2020-07-28 11:49 | HO.ANESPROP2 ---
Documented by User: Inna Cat 07/28/20 11:50 HPI - Anesthesia Eval Consult details Narrative: 34yo F for D&C Hysteroscopy, Poss Polypectomy, Poss Myomectomy PMFSH Active Problems Active Problems: All Active Problems (Updated 06/05/20 @ 16:08 by Kelly Flanagan NP) Abdominal pain (Acute) Cervical cancer screening (Acute) Microscopic hematuria (Acute) Menorrhagia (Acute) Bacterial vaginosis (Acute) Endometrial polyp (Acute) Abdominal pain (Acute) Uterine polyp (Acute) Nephrolithiasis (Acute) Past Medical History Medical History (Updated 07/30/20 @ 09:37 by Eduarda Uribe) Anxiety delivery delivered Increased BMI Kidney stone Nephrolithiasis Family History Family History Mother No problems noted. Father No problems noted. Surgical History Surgical History Hx of cholecystectomy Social History Social History Are you a primary care transition coordinator to a significant other at home: No Do you presently have visiting nurse or other home services: No Alcohol intake: never Use of substances other than those prescribed or required for medical reasons: No Have you been hit, kicked, punched, or otherwise hurt by someone within the past year? If so, by whom?: No Are you DNR?: No Advance Directives: No (unknown) Advance Directives Information Provided: No Advance Directives on File: No (unknown) Recently lost weight without trying: No Eating poorly because of decreased appetite: No Nutrition Risks: No Nutritional Risk Gender identity: female Meds Allergies Allergy/AdvReac Type Severity Reaction Status Date / Time aspirin [ASA] Allergy Swelling Verified 07/30/20 07:48 Home Medications Medication Instructions Recorded Confirmed Last Taken Type baclofen 10 mg tablet 10 mg PO BID PRN 05/04/20 06/25/20 Unknown History sennosides 8.6 mg tablet 17.2 mg PO DAILY 05/04/20 06/25/20 Unknown History Exam Exam Date and Time: July 28, 2020 1149 Height,Weight and Vital Signs: Height 5 ft 2 in Weight 92.986 kg Pertinent Lab Results Pertinent Lab Results: Laboratory Tests 05/04/20 05/04/20 18:01 18:01 WBC 12.6 H Hgb 12.2 Hct 39.3 Plt Count 351 Sodium 140 Potassium 4.0 Chloride 103 Carbon Dioxide 29 BUN 11 Creatinine 0.84 Assessment and Plan Assessment Anesthesia Assessment: Chart Reviewed Documented by User: Eduarda Uribe 07/30/20 10:40 PMF Past Medical History Medical History (Updated 07/30/20 @ 09:37 by Eduarda Uribe) Anxiety delivery delivered Increased BMI Kidney stone Nephrolithiasis Family History Family History Mother No problems noted. Father No problems noted. Family history of problems with anesthesia: No Surgical History Surgical History Hx of cholecystectomy History of Problems with Anesthesia: Yes (Wakes up aggressive) Social History Social History Are you a primary care transition coordinator to a significant other at home: No Do you presently have visiting nurse or other home services: No Alcohol intake: never Use of substances other than those prescribed or required for medical reasons: No Have you been hit, kicked, punched, or otherwise hurt by someone within the past year? If so, by whom?: No Are you DNR?: No Advance Directives: No (unknown) Advance Directives Information Provided: No Advance Directives on File: No (unknown) Recently lost weight without trying: No Eating poorly because of decreased appetite: No Nutrition Risks: No Nutritional Risk Gender identity: female Meds Allergies Allergy/AdvReac Type Severity Reaction Status Date / Time aspirin [ASA] Allergy Swelling Verified 07/30/20 07:48 Home Medications Medication Instructions Recorded Confirmed Last Taken Type baclofen 10 mg tablet 10 mg PO BID PRN 05/04/20 06/25/20 Unknown History sennosides 8.6 mg tablet 17.2 mg PO DAILY 05/04/20 06/25/20 Unknown History Exam Height,Weight and Vital Signs: Vital Signs Temp Pulse Resp BP Pulse Ox 98.3 F 83 16 99/67 98 07/30/20 07:52 07/30/20 07:52 07/30/20 07:52 07/30/20 07:52 07/30/20 07:52 Pertinent Lab Results Pertinent Lab Results: Lab Results 07/30/20 Range/Units 07:50 Urine Test NEGATIVE (NEGATIVE) Airway Mallampati Class: II TM Dist: >3cm Neck ROM: Full Heart: RRR Lungs: CTAB Assessment and Plan Assessment Anesthesia Assessment: Anesthesia Plan Discussed and Chart Reviewed Final Anesthetic Review NPO: Yes ASA Class: II Final Preanesthetic Review: No Changes in Pt Med Stat, Meds/Allgs Chart Reviewed, Consent Obtained/Reviewed and Anes Risks/Benef Reviewed Patient Risk: Low Procedure Risk: Low Assessment/Block/Sedation in SS: Assess/Block/Sedation-SS Anesthetic Plan Anesthetic Plan: GA Disposition: Standard PACU
[2020-07-30 07:52] VITALS: BP 99/67; PULSE 83; RESP 16; TEMP 36.8; O2SAT 98
[2020-07-30 08:02] LABS: UPreg QC Valid YES; Urine Pregnancy NEGATIVE (NEGATIVE)
[2020-07-30] MEDS: Lactated Ringers 1,000 ML 100 ML IVCONT (08:18)
--- NOTE | 2020-07-30 08:29 | MHC.SHP ---
Pre-Procedural Eval Section A The patient is an INPATIENT: No Changes since office visit: No Cold of Flu in the past 2 weeks, No New Medical Problems, No Changes in Medication and No Patient answered all questions The History & Physical has been completed within 30 days and I have reviewed it.: Yes Section B Chief Complaint: endometrial polyp Allergies: Allergies Allergy/AdvReac Type Severity Reaction Status Date / Time aspirin [ASA] Allergy Swelling Verified 07/30/20 07:48 Plan Diagnosis/Plan: Unchanged I have reviewed the history and physical and performed a pertinent physical examination on my patient. No changes have occurred unless specified.
--- NOTE | 2020-07-30 09:28 | PM.OP ---
Brief Operative Note Date of Service: 07/30/20 Pre-op diagnosis: Endometrial polyp by ultrasound Post-op diagnosis: other (Normal endometrial cavity with no evidence of pathology) Procedure: Hysteroscopy D&C Surgeon: Hammad Day MD Anesthesia: MAC Was an Technology Services Manager used for this Procedure?: No Estimated blood loss (mL): 0 Pathology: other (Endometrial Scrappings) Condition: stable Disposition: PACU
--- NOTE | 2020-07-30 09:29 | P.OP_ITS ---
Operative Note Operative Note Date of Service: 07/30/20 Narrative: Preop Diagnosis: Endometrial polyp by ultrasound Operation: Diagnostic Hysteroscopy, Dilataion & Curettage Post Op Diagnosis: Normal endometrial cavity QBL: Minimal Anesthesia: MAC Surgeon: Hammad Day MD Communications Professional: None Complication: None Pathology: Endometrial Scrapings Complication: None Pathology: Endometrial Scrapings Procedure: The patient was put in the dorsal lithotomy position, scrubbed, and draped in the usual manner. A sterile speculum was inserted in the patient's vagina. The anterior lip of the cervix was grasped with a single tooth tenaculum. The cervix was dilated up to 5 mm, then the scope was inserted in the patient's uterus. Inspection revealed Normal endometrial cavity. The Myosure Reach device was used; . At the end of the procedure, all instruments were taken out of the patient uterine and vaginal cavity. The single tooth tenaculum was removed and homeostasis was assured using pressure,. The patient tolerated the procedure well and was transferred to the PACU in a stable condition.
[2020-07-30 09:32] VITALS: BP 101/54; PULSE 79; RESP 18; TEMP 36.1; O2SAT 100
[2020-07-30 09:37] VITALS: BP 110/61; PULSE 81; RESP 18; O2SAT 100
[2020-07-30 09:42] VITALS: BP 105/57; PULSE 92; RESP 18; O2SAT 100
[2020-07-30 09:47] VITALS: BP 112/62; PULSE 77; RESP 18; O2SAT 98
[2020-07-30] MEDS: Acetaminophen 325 MG TABLET 650 MG PO (09:52)
[2020-07-30 10:02] VITALS: BP 108/60; PULSE 74; RESP 18; TEMP 36.1; O2SAT 100
== END 2020-07-30 11:07 ==
LOC: HO.SSS 07:40
PROVIDERS: Nurse Practitioner; Visit Provider Obstetrics & Gynecology
PROC: 0UDB8ZZ Extraction of Endometrium, Via Natural or Artificial Opening Endoscopic (ICD-10-PCS; CPT 58558; principal; 2020-07-30 09:00)
DX: N84.0 Polyp of corpus uteri (principal); Z90.49 Acquired absence of other specified parts of digestive tract; Z87.442 Personal history of urinary calculi; Z88.8 Allergy status to other drugs, medicaments and biological substances
CPT/HCPCS: 58558; 81025; 88305; J1100; J2250; J2405; J3010

== ENCOUNTER 2020-08-09 10:18 | Outpatient (REF) | payer OTHER, SELFPAY ==
--- NOTE | ~2020-08-09 | XR_ITS ---
EXAMINATION: XR LUMBOSACRAL SPINE CLINICAL INFORMATION: Dorsalgia. COMPARISON: 04/05/2020 TECHNIQUE: 3 views of the lumbosacral spine. FINDINGS: There are 5 non-rib bearing lumbar vertebrae. The bony texture is unremarkable. Disc spaces are maintained. No acute fracture, spondylolisthesis, or spondylolysis appreciated. There is some scoliosis at the thoracolumbar junction but which may be positional in nature. Sacroiliac joints unremarkable. No pelvic abnormality seen. Joint spaces maintained in both hips. Psoas margins are intact. XR/XR lumbar spine 2-3V IMPRESSION: No significant bony abnormality of the lumbar spine identified.
[2020-08-09 11:23] LABS: MANUAL DIFF FLAG NO
[2020-08-09 11:31] LABS: Basophils Percent Auto 0.3 % (0-2); Eosinophils Absolute Auto 0.3 X10*3/uL (0.0-0.4); Eosinophils Percent Auto 2.4 % (0-4); Hematocrit 37.8 % (37-47); Hemoglobin 11.6 g/dl (12.0-16.0); Imm Gran Abs Auto 0.05 X10*3/uL (0.00-0.03); Imm Gran Pct Auto 0.4 % (0.0-0.4); Lymphocytes Absolute Auto 3.3 X10*3/uL (1.2-4.9); Lymphocytes Percent Auto 28.4 % (20-40); Mean Corpuscular HGB Conc 30.7 g/dl (31.0-35.0); Mean Corpuscular Volume 78.1 fL (80-98); Mean Platelet Volume 10.4 fL (9.4-12.3); Monocytes Absolute Auto 0.6 X10*3/uL (0.1-1.2); Monocytes Percent Auto 5.5 % (2-11); Neutrophils Absolute Auto 7.3 X10*3/uL (2.0-8.3); Platelet Count 348 X10*3/uL (160-400); Red Blood Count 4.84 X10*6/uL (4.20-5.50); Red Cell Distribution Width 17.2 % (11.0-16.0); White Blood Count 11.6 X10*3/uL (4.8-10.8)
[2020-08-09 11:54] LABS: HCG Quantitative < 2 mIU/mL
[2020-08-09 12:15] LABS: Thyroid Stimulating Hormone 0.63 uIU/mL (0.32-4.0)
[2020-08-09 12:16] LABS: Anion Gap 9 (12-20); Blood Urea Nitrogen 9 mg/dL (9-16); Calcium 8.9 mg/dL (8.4-10.2); Carbon Dioxide 24 mmol/L (22-29); Chloride 109 mmol/L (96-108); Estimated Glomerular Filt Rate > 60; Glucose Random 101 mg/dL (60-115); Potassium 4.1 mmol/L (3.3-5.1); Sodium 138 mmol/L (135-145)
== END 2020-08-09 10:19 | disposition home or self-care (01) ==
LOC: HO.XRAY 10:18
PROVIDERS: Obstetrics & Gynecology; Visit Provider Internal Medicine
DX: Z00.00 Encounter for general adult medical examination without abnormal findings (principal); M54.9 Dorsalgia, unspecified; R51.9 Headache, unspecified; N92.0 Excessive and frequent menstruation with regular cycle
CPT/HCPCS: 36415; 72100; 80048; 84443; 84702; 85025

== ENCOUNTER → 2020-08-11 11:33 | Outpatient (BNVA) | payer OTHER, SELFPAY | PROVIDERS: Visit Provider Obstetrics & Gynecology ==